=== PATIENT | male | born 1945 | race Caucasian/White ===

== ENCOUNTER → 2016-10-02 | Outpatient (CLI) | payer MEDICARE, OTHER | END | disposition home or self-care (01) | LOC: CVU 09:18 | PROVIDERS: ATTEND Internal Medicine Nephrology | DX: I12.9 Hypertensive chronic kidney disease with stage 1 through stage 4 chronic kidney disease, or unspecified chronic kidney disease (principal); N18.3 Chronic kidney disease, stage 3 (moderate); I70.208 Unspecified atherosclerosis of native arteries of extremities, other extremity; I77.1 Stricture of artery; C61 Malignant neoplasm of prostate; E11.9 Type 2 diabetes mellitus without complications; D63.1 Anemia in chronic kidney disease; I25.10 Atherosclerotic heart disease of native coronary artery without angina pectoris; E78.5 Hyperlipidemia, unspecified; R80.3 Bence Jones proteinuria | CPT/HCPCS: 93922; 93925 ==

== ENCOUNTER → 2016-11-18 | Outpatient (CLI) | payer MEDICARE, OTHER | END | disposition home or self-care (01) | LOC: CVU 12:28 | PROVIDERS: ATTEND Surgery | DX: I87.2 Venous insufficiency (chronic) (peripheral) (principal); L81.8 Other specified disorders of pigmentation; R60.0 Localized edema | CPT/HCPCS: 93970 ==

== ENCOUNTER 2016-12-03 09:57 | Day surgery (SDC) | payer MEDICARE, OTHER ==
[~2016-12-03] VITALS: Ht 185.4 cm; Wt 109.0 kg
[2016-12-03] MEDS ORDERED: LANS30CA PO (11:08)
[2016-12-03] MEDS ORDERED: AMLO5TAB2 PO (11:08)
[2016-12-03] MEDS ORDERED: CHOL40002 PO (11:08)
[2016-12-03] MEDS ORDERED: EZET10TA3 PO (11:08)
[2016-12-03] MEDS ORDERED: ASPI-496 PO (11:08)
[2016-12-03] MEDS ORDERED: METO50TA82 PO ×2 (11:08)
[2016-12-03] MEDS ORDERED: ATOR80TA75 PO (11:08)
[2016-12-03] MEDS ORDERED: VITA1CAP PO (11:08)
[2016-12-03] MEDS ORDERED: SITA1TBM7 PO (11:08)
[2016-12-03] MEDS ORDERED: ENAL20TA PO (11:08)
[2016-12-03] MEDS ORDERED: INSU100C SQ-INSULIN (11:08)
[2016-12-03] MEDS ORDERED: HYDR25TA6 PO (11:08)
[2016-12-03] MEDS ORDERED: FISH1CAP PO (11:08)
[2016-12-03] MEDS ORDERED: INSU200I4 SQ (11:08)
[2016-12-03] MEDS ORDERED: ALLO100T30 PO (11:08)
[2016-12-03 11:09] VITALS: BP 172/85
[2016-12-03 11:27] LABS: BLOOD UREA NITROGEN 32 mg/dL (7-18)
[2016-12-03] MEDS ORDERED: MIDAZOLAM 1 MG/ML, 5ML ONE (12:00)
[2016-12-03] MEDS ORDERED: PROTAMINE SULFATE 10 MG/ML, 25ML ONE (12:00)
[2016-12-03] MEDS ORDERED: VISIPAQUE 270 MG/ML, 150ML BOTTLE ONE (12:00)
[2016-12-03] MEDS ORDERED: FENTANYL PF 100 MCG/2ML ONE (12:01)
[2016-12-03] MEDS ORDERED: NALOXONE 1 MG/ML, 2ML ONE (12:01)
[2016-12-03] MEDS ORDERED: HEPARIN 1,000 UNITS/ML, 10ML ONE (12:01)
[2016-12-03] MEDS ORDERED: NITROGLYCERIN 5 MG/ML, 10ML ONE (12:01)
[2016-12-03] MEDS ORDERED: FLUMAZENIL 0.1 MG/1 ML, 5ML ONE (12:01)
[2016-12-03] MEDS ORDERED: LIDOCAINE 2%, 20ML ONE (12:11)
[2016-12-03] MEDS ORDERED: CLOPIDOGREL 75 MG TABLET ONE (14:53)
[2016-12-03] MEDS ORDERED: CLOPIDOGREL 75 MG TABLET PO ONE (15:00)
== END 2016-12-03 18:25 | disposition home or self-care (01) ==
LOC: RAD 09:57 → SDC 18:25
PROVIDERS: ATTEND Surgery
DX: I70.213 Atherosclerosis of native arteries of extremities with intermittent claudication, bilateral legs (principal); I10 Essential (primary) hypertension; E11.9 Type 2 diabetes mellitus without complications
CPT/HCPCS: 36415; 37225; 75630; 80048; 82962; 85025; 99156; 99157; C1714; C1725; C1760; C1769; C1884; C1894; C2623; J1644; J2250; J3010; J3490; Q9966; J2720; J2310

== ENCOUNTER 2017-04-29 06:08 | Day surgery (SDC) | payer MEDICARE, OTHER ==
[~2017-04-29] VITALS: Ht 185.4 cm; Wt 110.1 kg
[~2017-04-29 06:08] MED LIST: ALLO100T30 PO; AMLO5TAB2 PO; ASPI-496 PO; ATOR-2 PO; CHOL40002 PO; ENAL20TA PO; EZET10TA18 PO; FISH1CAP PO; HYDR25TA6 PO; INSU100C SQ-INSULIN; INSU200I4 SQ; LANS30CA PO; METO50TA82 PO; SITA1TBM7 PO; VITA1CAP PO
[2017-04-29] MEDS ORDERED: SODIUM CHLORIDE 0.9% 1,000 ML IV SCH (06:55)
[2017-04-29] MEDS ORDERED: MIDAZOLAM 1 MG/ML, 5ML ONE ×2 (07:21→09:55)
[2017-04-29] MEDS ORDERED: HEPARIN 1,000 UNITS/ML, 10ML ONE (07:21)
[2017-04-29] MEDS ORDERED: NALOXONE 1 MG/ML, 2ML ONE (07:21)
[2017-04-29] MEDS ORDERED: NITROGLYCERIN 5 MG/ML, 10ML ONE (07:21)
[2017-04-29] MEDS ORDERED: FLUMAZENIL 0.1 MG/1 ML, 5ML ONE (07:21)
[2017-04-29] MEDS ORDERED: PROTAMINE SULFATE 10 MG/ML, 25ML ONE (07:21)
[2017-04-29] MEDS ORDERED: FENTANYL PF 100 MCG/2ML ONE ×2 (07:21→10:06)
[2017-04-29 07:24] VITALS: BP 142/76
[2017-04-29 07:28] LABS: HEMATOCRIT 45.3 % (39.2-51.8); HEMOGLOBIN 15.3 g/dL (13.7-18.0); WHITE BLOOD COUNT 6.8 x10^3/uL (3.4-10)
[2017-04-29] MEDS ORDERED: VISIPAQUE 270 MG/ML, 50ML BOTTLE ONE (07:30)
[2017-04-29] MEDS ORDERED: FURO20TA3 PO (07:34)
[2017-04-29 07:38] LABS: BLOOD UREA NITROGEN 33 mg/dL (7-18)
[2017-04-29] MEDS ORDERED: DEXTROSE 50%, 50ML SYRINGE ONE (07:50)
[2017-04-29] MEDS ORDERED: LIDOCAINE 2%, 20ML ONE (07:58)
[2017-04-29] MEDS ORDERED: CLOPIDOGREL 75 MG TABLET ONE (11:05)
== END 2017-04-29 13:30 ==
LOC: OUT 06:08
PROVIDERS: ATTEND Surgery
DX: I70.213 Atherosclerosis of native arteries of extremities with intermittent claudication, bilateral legs (principal); I73.9 Peripheral vascular disease, unspecified; E11.22 Type 2 diabetes mellitus with diabetic chronic kidney disease; I12.9 Hypertensive chronic kidney disease with stage 1 through stage 4 chronic kidney disease, or unspecified chronic kidney disease; N18.9 Chronic kidney disease, unspecified; E78.00 Pure hypercholesterolemia, unspecified; I25.10 Atherosclerotic heart disease of native coronary artery without angina pectoris; M10.9 Gout, unspecified; I25.2 Old myocardial infarction; Z79.82 Long term (current) use of aspirin; Z88.1 Allergy status to other antibiotic agents; Z88.5 Allergy status to narcotic agent; Z88.8 Allergy status to other drugs, medicaments and biological substances
CPT/HCPCS: 36415; 37227; 37229; 75630; 76937; 80048; 82962; 85025; 99156; 99157; C1714; C1725; C1751; C1760; C1769; C1884; C1894; C2623; J1644; J2250; J2720; J3010; J3490; J7030; Q9966; J2310

== ENCOUNTER 2018-04-22 15:34 | Emergency (ER) | payer MEDICARE, OTHER ==
[~2018-04-22] VITALS: Ht 185.4 cm; Wt 111.3 kg
[~2018-04-22 15:34] MED LIST changes: -AMLO5TAB2 PO; +AMLO5TAB7 PO; +FURO20TA3 PO
[2018-04-22] MEDS ORDERED: KETOROLAC 30 MG/1 ML IM ONE (16:30)
[2018-04-22 16:38] LABS: BASOPHILS # (AUTO) 0.07 x10^3/uL (0-0.1); BASOPHILS % (AUTO) 1 % (0-1); EOSINOPHILS # (AUTO) 0.13 x10^3/uL (0-0.4); EOSINOPHILS % (AUTO) 2 % (1-7); LYMPHOCYTES % (AUTO) 25 % (22-44); MD NO; MEAN CORPUSCULAR HEMOGLOBIN 32.9 pg (27.5-34.5); MEAN CORPUSCULAR HGB CONC 33.6 g/dL (33.2-36.2); MEAN CORPUSCULAR VOLUME 97.8 fL (81-97); MEAN PLATELET VOLUME 8.6 fL (7.4-10.4); MONOCYTES % (AUTO) 11 % (2-9); NEUTROPHILS # (AUTO) 5.06 x10^3/uL (1.8-6.8); NEUTROPHILS % (AUTO) 62 % (42-75); PLATELET COUNT 239 x10^3/uL (130-400); RED BLOOD COUNT 4.84 x10^6/uL (4.38-5.82); RED CELL DISTRIBUTION WIDTH 15.1 % (9.4-14.8)
[2018-04-22] MEDS ORDERED: KETOROLAC 30 MG/1 ML ONE (16:40)
[2018-04-22 16:51] LABS: ALBUMIN 3.3 g/dL (3.4-5.0); ANION GAP 6 mmol/L (5-15); CALCIUM 8.9 mg/dL (8.5-10.1); CHLORIDE 111 mmol/L (98-107); CREATININE 2.15 mg/dL (0.7-1.3)
[2018-04-22 16:55] LABS: TROPONIN I < 0.015 ng/mL (0.000-0.045)
[2018-04-22] MEDS ORDERED: CLOP75TA PO (17:14)
[2018-04-22 18:56] VITALS: BP 154/76
== END 2018-04-22 19:05 | disposition home or self-care (01) ==
LOC: ED 18:59
DX: S29.011A Strain of muscle and tendon of front wall of thorax, initial encounter (principal); I51.9 Heart disease, unspecified; X58.XXXA Exposure to other specified factors, initial encounter; Y93.89 Activity, other specified; Y92.89 Other specified places as the place of occurrence of the external cause; Y99.8 Other external cause status
CPT/HCPCS: 36415; 71045; 80048; 82040; 84484; 85025; 93005; 96372; 99284; J1885

== ENCOUNTER → 2020-03-15 | Outpatient (CLI) | payer MEDICARE, OTHER ==
[~2020-03-15] MED LIST changes: +AMLO-150 PO; -AMLO5TAB7 PO; +ASCO100018 PO; +CLOP75TA PO; -ENAL20TA PO; +ENAL20TA9 PO; -EZET10TA18 PO; +EZET10TA70 PO; +FLUTICASONE PROPIONA; +LORA10TA75 PO; +MULT-717 PO; +PSYL660P18 PO
[2020-03-15 09:14] LABS: BASOPHILS % (AUTO) 3 % (0-1); EOSINOPHILS % (AUTO) 2 % (1-7); LYMPHOCYTES % (AUTO) 16 % (22-44); MEAN CORPUSCULAR HEMOGLOBIN 32.2 pg (27.5-34.5); MEAN CORPUSCULAR HGB CONC 33.1 g/dL (33.2-36.2); MEAN PLATELET VOLUME 9.7 fL (7.4-10.4); MONOCYTES % (AUTO) 11 % (2-9); NEUTROPHILS % (AUTO) 70 % (42-75); PLATELET COUNT 196 x10^3/uL (130-400); RED BLOOD COUNT 5.03 x10^6/uL (4.38-5.82); RED CELL DISTRIBUTION WIDTH 16.1 % (9.4-14.8)
[2020-03-15 09:19] LABS: ANION GAP 7 mmol/L (5-15); CALCIUM 9.9 mg/dL (8.5-10.1); CHLORIDE 106 mmol/L (98-107); CREATININE 1.95 mg/dL (0.7-1.3)
[2020-03-15 09:41] LABS: MD SCAN
== END | disposition home or self-care (01) ==
LOC: STAR 07:39
PROVIDERS: ATTEND Surgery
DX: Z01.812 Encounter for preprocedural laboratory examination (principal); Z20.828 Contact with and (suspected) exposure to other viral communicable diseases
CPT/HCPCS: 36415; 80048; 85025; 87635

== ENCOUNTER 2020-03-19 08:15 | Day surgery (SDC) | payer MEDICARE, OTHER ==
[~2020-03-19] VITALS: Ht 185.4 cm; Wt 106.0 kg
[2020-03-19] MEDS ORDERED: SODIUM CHLORIDE 0.9% 1,000 ML IV SCH (09:00)
[2020-03-19 09:09] VITALS: BP 131/70
[2020-03-19] MEDS ORDERED: HEPARIN 1,000 UNITS/ML, 10ML ONE (10:11)
[2020-03-19] MEDS ORDERED: NALOXONE 1 MG/ML, 2ML ONE (10:11)
[2020-03-19] MEDS ORDERED: MIDAZOLAM 1 MG/ML, 5ML ONE (10:11)
[2020-03-19] MEDS ORDERED: PROTAMINE SULFATE 10 MG/ML, 25ML ONE (10:11)
[2020-03-19] MEDS ORDERED: FENTANYL PF 100 MCG/2ML ONE (10:11)
[2020-03-19] MEDS ORDERED: FLUMAZENIL 0.1 MG/1 ML, 5ML ONE (10:11)
[2020-03-19] MEDS ORDERED: LIDOCAINE 1%, 10ML ONE (10:46)
== END 2020-03-19 14:50 | disposition home or self-care (01) ==
LOC: OUT 08:15
PROVIDERS: ATTEND Surgery
DX: I70.211 Atherosclerosis of native arteries of extremities with intermittent claudication, right leg (principal); I12.9 Hypertensive chronic kidney disease with stage 1 through stage 4 chronic kidney disease, or unspecified chronic kidney disease; E11.22 Type 2 diabetes mellitus with diabetic chronic kidney disease; N18.9 Chronic kidney disease, unspecified; I25.10 Atherosclerotic heart disease of native coronary artery without angina pectoris; I25.2 Old myocardial infarction; E78.00 Pure hypercholesterolemia, unspecified; M10.9 Gout, unspecified; Z88.1 Allergy status to other antibiotic agents; Z88.5 Allergy status to narcotic agent; Z88.8 Allergy status to other drugs, medicaments and biological substances; Z72.0 Tobacco use; Z98.890 Other specified postprocedural states; Z98.52 Vasectomy status; Z79.899 Other long term (current) drug therapy
CPT/HCPCS: 37225; 75630; 99156; 99157; C1714; C1725; C1760; C1769; C1884; C1894; J1644; J2250; J3010; J2720; J2310